=== PATIENT | male | born 1985 | race Caucasian/White ===

== ENCOUNTER 2016-08-17 12:23 | Emergency (ER) | payer SELFPAY ==
[~2016-08-17] VITALS: Ht 175.3 cm; Wt 100.4 kg
[2016-08-17 12:25] VITALS: BP 127/78
== END 2016-08-17 13:09 | disposition home or self-care (01) ==
LOC: ED 13:03
DX: K02.9 Dental caries, unspecified (principal)
CPT/HCPCS: 99283

== ENCOUNTER 2017-06-28 17:57 | Emergency (ER) | payer MEDICAID ==
[~2017-06-28] VITALS: Ht 175.3 cm; Wt 106.6 kg
[2017-06-28 18:21] VITALS: BP 120/80
[2017-06-28] MEDS ORDERED: KETOROLAC 30 MG/1 ML ONE (18:59)
[2017-06-28] MEDS ORDERED: METHOCARBAMOL 750 MG TABLET ONE (18:59)
[2017-06-28] MEDS ORDERED: KETOROLAC 30 MG/1 ML IM ONE (19:00)
[2017-06-28] MEDS ORDERED: METHOCARBAMOL 750 MG TABLET PO ONE (19:00)
== END 2017-06-28 19:48 | disposition home or self-care (01) ==
LOC: ED 19:39
DX: S46.811A Strain of other muscles, fascia and tendons at shoulder and upper arm level, right arm, initial encounter (principal); X50.9XXA Other and unspecified overexertion or strenuous movements or postures, initial encounter; Y93.89 Activity, other specified; Y92.89 Other specified places as the place of occurrence of the external cause; Y99.9 Unspecified external cause status
CPT/HCPCS: 73030; 96372; 99284; J1885

== ENCOUNTER 2017-11-04 20:24 | Emergency (ER) | payer MEDICAID ==
[~2017-11-04] VITALS: Ht 175.3 cm; Wt 100.8 kg
[2017-11-04 20:26] VITALS: BP 124/78
[2017-11-04] MEDS ORDERED: DIPH,PERTUSS(ACELL),TET VAC/PF 0.5 ML IM-VACC ONE ×2 (21:27→21:30)
== END 2017-11-04 22:19 | disposition home or self-care (01) ==
LOC: ED 21:55
DX: L03.113 Cellulitis of right upper limb (principal); F17.210 Nicotine dependence, cigarettes, uncomplicated
CPT/HCPCS: 29125; 90471; 90715